=== PATIENT | female | born 1985 | race Hispanic/Latino ===

== ENCOUNTER 2019-08-27 12:15 | Emergency (ER) | payer SELFPAY ==
[2019-08-27] MEDS ORDERED: Dexamethasone 4 mg/ml Vial ONE (13:03)
[2019-08-27] MEDS ORDERED: Metoclopramide HCl 10 MG/2 ML VIAL ONE (13:03)
[2019-08-27 13:36] LABS: BHCG - Serum Negative (NEGATIVE); Pregs Control Background? CLEAR/WHITE (CLR/WHITE); Pregs Control Bar Appear? YES (CONTROL BAR)
[2019-08-27 13:41] LABS: #Eosinphils 0.6 thou/uL (0.0-0.7); #Lymphocytes 1.2 thou/uL (1.20-3.40); #Monocytes 0.4 thou/uL (0.11-0.59); #Neutrophils 4.9 thou/uL (1.40-6.50); %Basophils 0.3 % (0.0-1.0); %Eosinophils 7.8 % (0.0-10.0); %Monocytes 5.8 % (0.0-10.0); %Neutrophils 69.2 % (42.0-75.0); Hemoglobin 10.6 g/dL (12.0-16.0); Mean Corpuscular HGB CONC 33.6 g/dL (32.0-36.0); Mean Corpuscular Hemoglobin 25.5 pg (27.0-31.0); Mean Corpuscular Volume 75.9 fL (78.0-98.0); Mean Platelet Volume 8.2 fL (7.4-10.4); Platelet Count 290 thou/uL (130-400); RBC Distribution Width 13.7 % (11.5-14.5); Red Blood Cell (RBC) Count 4.18 mill/uL (4.20-5.40); White Blood Cell (WBC) Count 7.1 thou/uL (4.8-10.8)
[2019-08-27 13:55] LABS: ALT (SGPT) 45 U/L (8-55); AST (SGOT) 26 U/L (5-34); Albumin 3.9 g/dL (3.5-5.0); Alkaline Phosphatase 110 U/L (40-110); Anion Gap 12 mmol/L (10-20); BUN (Urea Nitrogen) 10 mg/dL (7.0-18.7); Bilirubin, Total 0.5 mg/dL (0.2-1.2); CK (CPK) 73 U/L (29-168); Calc. Creatinine Clearance 0 mL/min (70-130); Calcium 8.8 mg/dL (7.8-10.44); Carbon Dioxide 22 mmol/L (22-29); Chloride 109 mmol/L (98-107); Estimated GFR-MDRD 90; Globulin 3.6 g/dL (2.4-3.5); Glucose 105 mg/dL (70-105); Potassium 3.6 mmol/L (3.5-5.1); Protein, Total 7.5 g/dL (6.0-8.3); Sodium 139 mmol/L (136-145)
[2019-08-27 13:59] LABS: Bilirubin Negative (Negative); Blood, Urine Negative (Negative); Clarity Clear (Clear); Glucose, Urine (Dipstick) Normal (Negative); Leukocyte Negative Leu/uL (Negative); Nitrite Negative (Negative); Protein, Urine (Dipstick) 20 mg/dL (Neg-Trace); Urobilinogen Normal mg/dL (Less than 2)
--- NOTE | 2019-08-27 14:15 | RAD ---
PORTABLE CHEST 1 VIEW: Date: 08/27/2019 Time: 1323 hours HISTORY: Altered mental status. Headache. FINDINGS: The heart size is normal. No focal areas of consolidation, pneumothoraces, or pleural effusions are s een. IMPRESSION: No radiographic evidence of acute cardiopulmonary process. POS: [facility]
--- NOTE | 2019-08-27 14:32 | CT ---
CT BRAIN WITHOUT CONTRAST: Date: 08/27/2019 HISTORY: Right arm and leg numbness, headache. FINDINGS: No evidence of acute infarct, hemorrhage, midline shift, or abnormal extra-axial fluid collections ar e seen. The ventricular size is normal and the basilar cisterns are patent. The bony calvarium is int act. There is mucosal disease in the paranasal sinuses. IMPRESSION: 1. No CT evidence of acute intracranial process. 2. Paranasal sinus disease. POS: [facility]
--- NOTE | 2019-09-01 15:32 | EKG ---
Test Reason : Blood Pressure : / mmHG Vent. Rate : 069 BPM Atrial Rate : 069 BPM P-R Int : 166 ms QRS Dur : 084 ms QT Int : 360 ms P-R-T Axes : 028 033 040 degrees QTc Int : 385 ms Normal sinus rhythm Cannot rule out Anterior infarct , age undetermined Abnormal ECG Confirmed by MOISES HUYNH, ALONDRA ([id number]), book editor ELROY MENCHACA ([id number]) on 09/01/2019 3:32:09 PM Referred By: Confirmed By:ALONDRA DE LEON MD
== END 2019-08-27 14:58 | disposition home or self-care (01) ==
LOC: ERS 12:15
DX: J32.9 Chronic sinusitis, unspecified (principal); R20.2 Paresthesia of skin
CPT/HCPCS: 70450; 71045; 80053; 81003; 82550; 84703; 85025; 85652; 86140; 93005; 96361; 96374; 96375; J1100; J2765

== ENCOUNTER 2025-04-26 00:46 | Emergency (ER) | payer SELFPAY ==
[2025-04-26] MEDS ORDERED: Ketorolac Tromethamine 30 MG (1 mL) VIAL ONE (01:19)
[2025-04-26] MEDS ORDERED: Pantoprazole 40 MG VIAL ONE (01:20)
[2025-04-26] MEDS ORDERED: Famotidine/PF 20 mg/2ml Vial ONE (01:20)
[2025-04-26 01:26] LABS: #Basophils 0.04 10x3/uL (0.0-0.2); #Eosinophils 0.13 10x3/uL (0.0-0.7); #Monocytes 0.38 10x3/uL (0.11-0.59); #Neutrophils 3.83 10x3/uL (1.40-6.50); %Basophils 0.6 % (0.0-1.0); %Eosinophils 1.9 % (0.0-10.0); %Lymphocytes 36.0 % (21.0-51.0); %Monocytes 5.5 % (0.0-10.0); %Neutrophils 55.7 % (42.0-75.0); Hematocrit 32.4 % (36.0-47.0); Hemoglobin 9.8 g/dL (12.0-16.0); Mean Corpuscular Hemoglobin 21.4 pg (27.0-31.0); Mean Corpuscular Volume 70.6 fL (78.0-98.0); Platelet Count 287 10x3/uL (130-400); Red Blood Cell (RBC) Count 4.59 mill/uL (4.20-5.40); White Blood Cell (WBC) Count 6.88 10x3/uL (4.8-10.8)
[2025-04-26 01:30] LABS: BHCG - Serum Negative (NEGATIVE); Pregs Control Background? CLEAR/WHITE (CLR/WHITE); Pregs Control Bar Appear? YES (CONTROL BAR)
[2025-04-26 01:34] LABS: ALT (SGPT) 23 U/L (Less than 34); AST (SGOT) 21 U/L (11-34); Albumin 3.9 g/dL (3.1-4.5); Alkaline Phosphatase 149 U/L (40-110); Anion Gap 13 mmol/L (10-20); BUN (Urea Nitrogen) 9 mg/dL (7.0-18.7); Bilirubin, Total 0.8 mg/dL (0.3-1.2); Calc. Creatinine Clearance 0 mL/min (70-130); Calcium 9.2 mg/dL (7.8-10.44); Carbon Dioxide 23 mmol/L (22-29); Chloride 106 mmol/L (98-107); Globulin 4.0 g/dL (2.4-3.5); Glucose 102 mg/dL (70-105); Lipase 29 U/L (8-78); Potassium 3.9 mmol/L (3.5-5.1); Sodium 138 mmol/L (136-145)
[2025-04-26 01:55] LABS: Microcytosis SLIGHT = 6-15 cells HPF (0-5); Platelet Adequacy Comment Platelets Normal; Poikilocytosis SLIGHT = 6-15 cells HPF (0-5); Polychromasia SLIGHT = 2-3 cells HPF (0-2)
== END 2025-04-26 05:00 | disposition home or self-care (01) ==
LOC: ERS 00:46
DX: R10.13 Epigastric pain (principal); D64.9 Anemia, unspecified; D25.9 Leiomyoma of uterus, unspecified; R03.0 Elevated blood-pressure reading, without diagnosis of hypertension
CPT/HCPCS: 71045; 74177; 76705; 80053; 83690; 84484; 84703; 85025; 93005; 96374; 96375; J1308; J1885; J2470